=== PATIENT | male | born 1950 | race Caucasian/White ===

== ENCOUNTER → 2018-11-18 | Outpatient (CLI) | payer OTHER ==
--- NOTE | 2018-11-18 13:45 | 2DMMODE ---
[place] [address] 2 D/M-MODE ECHOCARDIOGRAM Name: ONEAL CHAVEZ Room: [facility]#: [id number] Admission: 11/18/18 Attend Phys: Rubén Keane, Discharge: Date of : 46 Date of Service: 11/18/18 1345 Report #: [id number] THIS REPORT FOR: //name// APPROVED REPORT Study performed: 11/18/2018 09:15:34 EXAM: Comprehensive 2D, Doppler, and color-flow Echocardiogram Patient Location: Out-Patient BSA: 2.15 HR: 75 bpm BP: 122/60 mmHg Other Information Study Quality: Good Indications Murmur 2D Dimensions IVSd: 12.91 (7-11mm) LVOT Diam: 20.55 (18-24mm) LVDd: 43.17 mm PWd: 10.75 (7-11mm) Ascending Ao: 32.90 (22-36mm) LVDs: 26.52 (25-40mm) Aortic Root: 30.22 mm Volumes Left Atrial Volume (Systole) LA ESV Index: 13.10 mL/m2 Aortic Valve AoV Peak Hnak.: 1.63 m/s AO Peak Gr.: 10.65 mmHg LVOT Max P.04 mmHg AO Mean Gr.: 6.26 mmHg LVOT Mean P.58 mmHg LVOT Max V: 1.42 m/s AO V2 VTI: 30.12 cm LVOT Mean V: 1.01 m/s LOAN (VTI): 3.05 cm2 LVOT V1 VTI: 27.71 cm Mitral Valve E/A Ratio: 0.82 MV Decel. Time: 192.69 ms MV E Max Hank.: 0.60 m/s MV PHT: 55.88 ms MVA (PHT): 3.94 cm2 [place] [address] 2 D/M-MODE ECHOCARDIOGRAM Name: ONEAL CHAVEZ Room: [facility]#: [id number] Admission: 11/18/18 Attend Phys: Rubén Keane, Discharge: Date of : 46 Date of Service: 11/18/18 1345 Report #: [id number] TDI E/Lateral E': 5.45 E/Medial E': 7.50 Medial E' Hank.: 0.08 m/s Lateral E' Hank.: 0.11 m/s Pulmonary Valve PV Peak Hank.: 1.11 m/s PV Peak Gr.: 4.91 mmHg Left Ventricle The left ventricle is normal size. There is normal LV segmental wall motion. There is normal left ventricular wall thickness. Left ventricular systolic function is normal. The left ventricular ejection fraction is within the normal range. LVEF is 55-60%. Grade I - abnormal relaxation pattern. Right Ventricle The right ventricle is normal size. The right ventricular systolic function is normal. Atria The left atrium size is normal. The right atrium size is normal. Aortic Valve Aortic valve is mildly calcified. No aortic regurgitation is present. There is no aortic valvular stenosis. Mitral Valve The mitral valve is normal in structure. There is no mitral valve regurgitation noted. No evidence of mitral valve stenosis. Tricuspid Valve The tricuspid valve is normal in structure. There is no tricuspid valve regurgitation noted. Pulmonic Valve The pulmonary valve is normal in structure. There is no pulmonic valvular regurgitation. Great Vessels The aortic root is normal in size. IVC is normal in size and collapses >50% with inspiration. Pericardium There is no pericard[place] [address] 2 D/M-MODE ECHOCARDIOGRAM Name: ONEAL CHAVEZ Room: [facility] JazJayne#: [id number] Admission: 11/18/18 Attend Phys: Rubén Keane, Discharge: Date of : 46 Date of Service: 11/18/18 1345 Report #: [id number] <Conclusion> LVEF is 55-60%. Aortic valve is mildly calcified. <ELECTRONICALLY SIGNED> By: Rajinder Zavala MD, [facility] 11/18/18 1345 D: 04/1344 44 Rajinder Zavala MD, FACC /INF
== END ==
LOC: M.CRD 09:00
DX: R01.1 Cardiac murmur, unspecified (principal); E78.5 Hyperlipidemia, unspecified; E11.9 Type 2 diabetes mellitus without complications; E66.09 Other obesity due to excess calories; Z79.84 Long term (current) use of oral hypoglycemic drugs; Z83.3 Family history of diabetes mellitus

== ENCOUNTER 2019-07-08 11:41 | Emergency (ER) | payer OTHER ==
[~2019-07-08] VITALS: Ht 170.2 cm; Wt 98.4 kg
[2019-07-08] MEDS ORDERED: LISINOPRIL2.5 MG PO (12:07)
[2019-07-08] MEDS ORDERED: METFORMIN HCL500 M3 PO (12:08)
[2019-07-08] MEDS ORDERED: SIMVASTATIN80 MG PO (12:08)
[2019-07-08 12:23] LABS: ABSOLUTE EOSINOPHILS 0.1 thou/uL (0.0-0.7); ABSOLUTE LYMPHOCYTES 1.6 thou/uL (0.8-5.3); ABSOLUTE MONOCYTES 0.5 thou/uL (0.0-1.2); ABSOLUTE NEUTROPHILS 4.6 thou/uL (1.6-8.1); BASOPHILS 0.4 %; HEMATOCRIT 44.2 % (42.0-52.0); HEMOGLOBIN 14.9 gm/dL (14.0-18.0); MCH 31.9 pg (26.0-34.0); MCHC 33.6 g/dL (28.0-37.0); MONOCYTES 6.9 %; MPV 7.6 fl. (7.2-11.1); NUCLEATED RBCS 0 /100WBC; PLATELET COUNT* 193 thou/uL (150-400); POLYS 67.7 %; RBC 4.66 mil/uL (4.50-6.00); RDW-CV 13.6 % (10.5-14.5); WBC 6.8 thou/uL (4.0-11.0)
[2019-07-08 12:44] LABS: CALCIUM 9.5 mg/dL (8.5-10.1); POTASSIUM 4.4 mmol/L (3.5-5.1)
[2019-07-08 12:48] LABS: ALBUMIN 4.2 g/dL (3.4-5.0); TOTAL BILIRUBIN 0.5 mg/dL (<0.1-1.0); TOTAL PROTEIN 7.5 g/dL (6.4-8.2)
[2019-07-08 12:49] LABS: URINE BILIRUBIN NEGATIVE (Negative); URINE BLOOD NEGATIVE (Negative); URINE CLARITY CLEAR; URINE COLOR YELLOW; URINE GLUCOSE-RANDOM NEGATIVE (Negative); URINE KETONES NEGATIVE (Negative); URINE LEUKOCYTES-REFLEX NEGATIVE (Negative); URINE NITRITE-REFLEX NEGATIVE (Negative); URINE PROTEIN NEGATIVE (Negative); URINE SPECIFIC GRAVITY 1.025 (1.005-1.030); URINE UROBILINOGEN 0.2 E.U./dl (0.2-1.0)
[2019-07-08] MEDS ORDERED: NABUMETONE 750750 M1 PO (13:30)
[2019-07-08] MEDS ORDERED: ZANAFLEX4 MG PO (13:30)
[2019-07-08] MEDS ORDERED: NORCO 5-325 TA1 EAC1 PO (13:30)
[2019-07-08 13:57] VITALS: BP 140/80
== END 2019-07-08 13:58 | disposition home or self-care (01) ==
LOC: M.ERS 11:41
PROVIDERS: Nurse Practitioner Family
DX: R10.31 Right lower quadrant pain (principal); E11.9 Type 2 diabetes mellitus without complications; Z87.442 Personal history of urinary calculi

== ENCOUNTER 2021-06-22 05:29 | Emergency (ER) | payer OTHER ==
[~2021-06-22] VITALS: Ht 170.2 cm; Wt 87.1 kg
[~2021-06-22 05:29] MED LIST: LISINOPRIL2.5 MG PO; METFORMIN HCL500 M3 PO; NABUMETONE 750750 M1 PO; NORCO 5-325 TA1 EAC1 PO; SIMVASTATIN80 MG PO; ZANAFLEX4 MG PO
[2021-06-22 06:14] VITALS: BP 129/68
--- NOTE | 2021-06-22 10:48 | EKG ---
[place] [address] ELECTROCARDIOGRAM REPORT Name: [id number] Admission: 06/22/21 Attend Phys: Discharge: 06/22/21 Date of : 46 Date of Service: 06/22/21537 Report #: [id number] THIS REPORT FOR: //name// [facility] ED Test Date: 2021-06-22 Test Time: 05:38:51 Pat Name: ONEAL CHAVEZ Department: Room: Gender: Director Of Recruiting: CT : 1950 Requested By: Sara Pringle Order Number: [id number] MD: Rajinder Zavala Measurements Intervals [place] Rate: 74 P: 66 SD: 155 QRS: 48 QRSD: 94 T: 32 QT: 355 QTc: 394 Interpretive Statements Sinus rhythm No previous ECG available for comparison Electronically Signed On 06-22-2021 10:48:21 [employer] by Rajinder Zavala [email or web address] <ELECTRONICALLY SIGNED> By: Rajinder Zavala MD, [facility] 06/22/21 1048 0538 0538 Rajinder Zavala MD, FACC /EPI
== END 2021-06-22 06:14 | disposition home or self-care (01) ==
LOC: M.ERS 05:29
DX: S01.01XA Laceration without foreign body of scalp, initial encounter (principal); E11.9 Type 2 diabetes mellitus without complications; Z87.442 Personal history of urinary calculi; Z79.899 Other long term (current) drug therapy; W19.XXXA Unspecified fall, initial encounter; Y93.89 Activity, other specified; Y92.89 Other specified places as the place of occurrence of the external cause; Y99.8 Other external cause status

== ENCOUNTER 2021-06-24 06:16 | Observation (INO) | payer OTHER ==
[~2021-06-24] VITALS: Ht 170.2 cm; Wt 87.1 kg
[2021-06-24 06:24] VITALS: BP 133/65
[2021-06-24 06:57] LABS: ABSOLUTE LYMPHOCYTES 0.8 thou/uL (0.8-5.3); ABSOLUTE MONOCYTES 0.4 thou/uL (0.0-1.2); ABSOLUTE NEUTROPHILS 3.8 thou/uL (1.6-8.1); BASOPHILS 0.2 %; HEMATOCRIT 43.3 % (42.0-52.0); HEMOGLOBIN 14.6 gm/dL (14.0-18.0); LYMPHOCYTES 15.4 %; MCH 31.2 pg (26.0-34.0); MCHC 33.7 g/dL (28.0-37.0); MCV 92.8 fL (80.0-100.0); MONOCYTES 7.8 %; MPV 7.1 fl. (7.2-11.1); NUCLEATED RBCS 0 /100WBC; PLATELET COUNT* 109 thou/uL (150-400); POLYS 76.6 %; RBC 4.67 mil/uL (4.50-6.00); WBC 4.9 thou/uL (4.0-11.0)
[2021-06-24 07:05] LABS: CREATININE 1.2 mg/dL (0.6-1.3); POTASSIUM 4.5 mmol/L (3.5-5.1)
[2021-06-24 07:09] LABS: ALBUMIN 3.4 g/dL (3.4-5.0); MAGNESIUM 1.9 mg/dL (1.8-2.4); TOTAL BILIRUBIN 0.5 mg/dL (<0.1-1.0); TOTAL PROTEIN 7.1 g/dL (6.4-8.2)
--- NOTE | 2021-06-24 10:01 | EKG ---
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
[2021-06-24 13:15] VITALS: BP 119/63
[2021-06-24 13:36] LABS: URINE BILIRUBIN NEGATIVE (Negative); URINE BLOOD NEGATIVE (Negative); URINE CLARITY CLEAR; URINE COLOR YELLOW; URINE GLUCOSE-RANDOM NEGATIVE (Negative); URINE KETONES NEGATIVE (Negative); URINE LEUKOCYTES-REFLEX NEGATIVE (Negative); URINE NITRITE-REFLEX NEGATIVE (Negative); URINE PROTEIN TRACE (Negative); URINE SPECIFIC GRAVITY 1.025 (1.005-1.030); URINE UROBILINOGEN 0.2 E.U./dl (0.2-1.0)
[2021-06-24 18:14] VITALS: BP 103/62
[2021-06-24 20:30] VITALS: BP 110/60
[2021-06-24 21:31] VITALS: BP 110/58
[2021-06-25] VITALS (8 sets, daily range): BP systolic 107–126; BP diastolic 49–62
[2021-06-25 07:19] LABS: ABSOLUTE LYMPHOCYTES 0.9 thou/uL (0.8-5.3); ABSOLUTE MONOCYTES 0.2 thou/uL (0.0-1.2); ABSOLUTE NEUTROPHILS 2.4 thou/uL (1.6-8.1); BASOPHILS 0.3 %; HEMATOCRIT 42.6 % (42.0-52.0); HEMOGLOBIN 14.2 gm/dL (14.0-18.0); LYMPHOCYTES 25.2 %; MCH 30.8 pg (26.0-34.0); MCHC 33.3 g/dL (28.0-37.0); MCV 92.4 fL (80.0-100.0); MONOCYTES 6.8 %; MPV 7.3 fl. (7.2-11.1); NUCLEATED RBCS 0 /100WBC; PLATELET COUNT* 88 thou/uL (150-400); POLYS 67.7 %; RBC 4.61 mil/uL (4.50-6.00); RDW-CV 13.8 % (10.5-14.5); WBC 3.6 thou/uL (4.0-11.0)
[2021-06-25 07:34] LABS: APTT 31.6 Seconds (25.0-31.3); INR 1.1; PROTIME 10.9 Seconds (9.20-11.50)
[2021-06-25 07:40] LABS: ALKALINE PHOSPHATASE 43 U/L (46-116); ANION GAP 7 mmol/L (7-16); BUN 17 mg/dL (7-18); CALCIUM 7.9 mg/dL (8.5-10.1); CHLORIDE 101 mmol/L (98-107); CO2 29 mmol/L (21-32); CREATININE 1.1 mg/dL (0.6-1.3); GLUCOSE 114 mg/dL (70-99); PHOSPHORUS* 3.7 mg/dL (2.5-4.9); POTASSIUM 4.6 mmol/L (3.5-5.1); SGOT 22 U/L (15-37); SGPT 24 U/L (30-65); SODIUM 137 mmol/L (136-145); TOTAL BILIRUBIN 0.4 mg/dL (<0.1-1.0); TOTAL PROTEIN 6.7 g/dL (6.4-8.2); TRIGLYCERIDE 62 mg/dL (<150); VLDL 12 mg/dL (<40)
[2021-06-25 08:17] LABS: CHOLESTEROL 113 mg/dL (<200); HDL CHOLESTEROL 39 mg/dL (>40); LDL CHOLESTEROL 62 mg/dL (<100); SERUM ASSESSMENT Clear; TC:HDL 2.9 Ratio (Not establshd)
[2021-06-25] MEDS ORDERED: DOXYCYCLINE 10100 M2 PO ×2 (09:53)
--- NOTE | 2021-06-25 13:30 | NUR ---
CM COMPLETED AN ASSESSMENT WITH PT WHO INDICATED HE LIVES AT HOME WITH HIS , IS ACTIVE AND INDEPENDENT WITH ADLS, DRIVES A VECHILE AND HAS NO DMES. PT DENIES HX WITH HH OR SNF.
--- NOTE | 2021-06-25 14:23 | 2DMMODE ---
[place] [address] 2 D/M-MODE ECHOCARDIOGRAM Name: ONEAL CHAVEZ Room: [address] [facility]#: [id number] Admission: 06/24/21 Attend Phys: Monty Chavez Discharge: Date of : 46 Date of Service: 06/25/21 1422 Report #: [id number] THIS REPORT FOR: cc: Rubén Keane Reuel M. DO Holkins,Benjamin Segal MD [facility] ~ APPROVED REPORT Study performed: 06/25/2021 09:31:56 EXAM: Comprehensive 2D, Doppler, and color-flow Echocardiogram Patient Location: In-Patient Room #: [facility] Status: routine BSA: 1.99 HR: 74 bpm BP: 126/62 mmHg Rhythm: NSR Other Information Study Quality: Good Indications Syncope 2D Dimensions IVSd: 10.03 (7-11mm) LVOT Diam: 19.47 (18-24mm) LVDd: 47.10 mm PWd: 9.67 (7-11mm) Ascending Ao: 34.85 (22-36mm) LVDs: 29.01 (25-40mm) Aortic Root: 35.23 mm Volumes Left Atrial Volume (Systole) LA ESV Index: 20.90 mL/m2 Aortic Valve AoV Peak Hank.: 1.65 m/s AO Peak Gr.: 10.89 mmHg LVOT Max P.46 mmHg AO Mean Gr.: 5.99 mmHg LVOT Mean P.48 mmHg LVOT Max V: 1.45 m/s AO V2 VTI: 26.41 cm LVOT Mean V: 0.83 m/s LOAN (VTI): 2.88 cm2 LVOT V1 VTI: 25.57 [place] [address] 2 D/M-MODE ECHOCARDIOGRAM Name: ONEAL CHAVEZ Room: [address] [facility]#: [id number] Admission: 06/24/21 Attend Phys: Monty Chavez Discharge: Date of : 46 Date of Service: 06/25/21 1422 Report #: [id number] Mitral Valve E/A Ratio: 1.14 MV Decel. Time: 155.40 ms MV E Max Hank.: 0.84 m/s MV PHT: 45.06 ms MVA (PHT): 4.88 cm2 TDI E/Lateral E': 5.25 E/Medial E': 7.64 Medial E' Hank.: 0.11 m/s Lateral E' Hank.: 0.16 m/s Pulmonary Valve PV Peak Hank.: 0.88 m/s PV Peak Gr.: 3.10 mmHg Left Ventricle The left ventricle is normal size. There is normal LV segmental wall motion. There is normal left ventricular wall thickness. Left ventricular systolic function is normal. The left ventricular ejection fraction is within the normal range. LVEF is 60-65%. Grade I - abnormal relaxation pattern. Right Ventricle The right ventricle is normal size. The right ventricular systolic function is normal. Atria The left atrium size is normal. The right atrium size is normal. Aortic Valve Mild aortic valve sclerosis. No aortic regurgitation is present. There is no aortic valvular stenosis. Mitral Valve The mitral valve is normal in structure. Trace mitral regurgitation. No evidence of mitral valve stenosis. Tricuspid Valve The tricuspid valve is normal in structure. Trace tricuspid regurgitation. Unable to assess PA pressure. Pulmonic Valve The pulmonary valve is normal in structure. There is no pulmonic [place] [address] 2 D/M-MODE ECHOCARDIOGRAM Name: ONEAL CHAVEZ Room: [address]#: [id number] Admission: 06/24/21 Attend Phys: Monty Chavez Discharge: Date of : 46 Date of Service: 06/25/21 1422 Report #: [id number] Great Vessels The aortic root is normal in size. IVC is normal in size and collapses >50% with inspiration. Pericardium There is no pericardial effusion. <Conclusion> The left ventricle is normal size. There is normal left ventricular wall thickness. Left ventricular systolic function is normal. The left ventricular ejection fraction is within the normal range. LVEF is 60-65%. Grade I - abnormal relaxation pattern. The right ventricle is normal size. The left atrium size is normal. Mild aortic valve sclerosis. No aortic regurgitation is present. There is no aortic valvular stenosis. The mitral valve is normal in structure. Trace mitral regurgitation. The tricuspid valve is normal in structure. IVC is normal in size and collapses >50% with inspiration. There is no pericardial effusion. There is normal LV segmental wall motion. <ELECTRONICALLY SIGNED> By: Benjamin Tiwari MD, FACC 06/25/21 142 21 21 Benjamin Tiwari MD, FACC /INF
--- NOTE | 2021-06-25 18:37 | NUR ---
Patient telemetry and IV d/c. Verbalized understanding of d/c paperwork and education. Has all personal belongings. Taken out by wheelchair to car.
[2021-06-26 02:06] LABS: GLYCOHEMOGLOBIN (HGB A1C) 6.3 % (4.8-5.6)
== END 2021-06-25 19:05 | disposition home or self-care (01) ==
LOC: M.ERS 06:16 → M.ORTHSURG 09:07 → M.TBA-ER 09:07 → M.ORTHSURG 09:07
PROVIDERS: Emergency Medicine; ADMIT Internal Medicine; ATTEND Internal Medicine
DX: U07.1 COVID-19 (principal); R55 Syncope and collapse; R11.0 Nausea; E11.9 Type 2 diabetes mellitus without complications; E78.5 Hyperlipidemia, unspecified; K04.7 Periapical abscess without sinus; Z79.899 Other long term (current) drug therapy

== ENCOUNTER → 2021-07-19 | Outpatient (CLI) | payer OTHER ==
[~2021-07-19] MED LIST changes: +DOXYCYCLINE 10100 M2 PO
== END ==
LOC: M.ULTRA 10:08
PROVIDERS: ATTEND Family Medicine
DX: I65.23 Occlusion and stenosis of bilateral carotid arteries (principal); E78.2 Mixed hyperlipidemia